=== PATIENT | male | born 1980 | race Caucasian/White ===

== ENCOUNTER 2019-04-11 17:32 | Emergency (ER) | payer SELFPAY ==
[~2019-04-11] VITALS: Ht 167.6 cm; Wt 68.0 kg
[2019-04-11 20:02] VITALS: BP 120/74
== END 2019-04-11 20:03 | disposition home or self-care (01) ==
LOC: ER 17:32
DX: F10.129 Alcohol abuse with intoxication, unspecified (principal); R56.9 Unspecified convulsions; F19.10 Other psychoactive substance abuse, uncomplicated; Z98.890 Other specified postprocedural states; Y90.9 Presence of alcohol in blood, level not specified
CPT/HCPCS: 99283

== ENCOUNTER 2020-09-14 16:34 | Emergency (ER) | payer SELFPAY ==
[~2020-09-14] VITALS: Ht 162.6 cm; Wt 68.0 kg
[2020-09-14 16:46] VITALS: BP 118/78
[2020-09-14] MEDS ORDERED: FOLIC ACID 1 MG, THIAMINE HCL 100 MG, MVI, ADULT NO.1 10 ML in DEXTROSE 5% WATER 1,000 ML IV ONE (17:00)
== END 2020-09-14 17:05 | disposition left against medical advice (07) ==
LOC: ER 16:34
DX: F10.129 Alcohol abuse with intoxication, unspecified (principal); Y90.9 Presence of alcohol in blood, level not specified
CPT/HCPCS: 99283; J3411; J3490; J7070

== ENCOUNTER 2020-09-14 20:20 | Emergency (ER) | payer SELFPAY ==
[~2020-09-14] VITALS: Ht 162.6 cm; Wt 71.0 kg
[2020-09-14 20:23] VITALS: BP 120/80
== END 2020-09-14 20:45 | disposition left against medical advice (07) ==
LOC: ER 20:20
DX: F10.129 Alcohol abuse with intoxication, unspecified (principal); Y90.9 Presence of alcohol in blood, level not specified
CPT/HCPCS: 99283